=== PATIENT | female | born 1945 | race Caucasian/White ===

== ENCOUNTER 2020-06-22 08:39 | Outpatient (CLI) | payer MEDICARE, SELFPAY ==
[2020-06-22 09:30] LABS: Alanine Aminotransferase 14 U/L (4-35); Albumin Level 4.1 g/dL (3.5-5.1); Alkaline Phosphatase 126 U/L (38-126); Anion Gap 9 mmol/L (8-16); Aspartate Amino Transferase 29 U/L (14-36); Bilirubin,Total 0.4 mg/dL (0.2-1.3); Blood Urea Nitrogen 14 mg/dL (7-17); Calcium 9.4 mg/dL (8.4-10.2); Carbon Dioxide 25 mmol/L (22-30); Chloride 98 mmol/L (98-107); Estimated Glomerular Filt Rate 34; Glucose 95 mg/dL (65-105); Potassium 4.1 mmol/L (3.4-5.0); Sodium 132 mmol/L (137-145)
== END 2020-06-22 08:40 | disposition home or self-care (01) ==
PROVIDERS: PCP Registered Nurse
DX: C34.91 Malignant neoplasm of unspecified part of right bronchus or lung (principal)
CPT/HCPCS: 36415; 80053

== ENCOUNTER 2021-09-21 17:16 | Inpatient (IN) | payer MEDICARE, SELFPAY ==
[2021-09-21] VITALS (75 sets, daily range): BP systolic 57–128; BP diastolic 29–110; PULSE 47–97; RESP 13–31; TEMP 36.3–36.8; O2SAT 73–100
--- NOTE | ~2021-09-21 | CT_ITS ---
EXAMINATION: CT cervical spine wo con DATE: 09/21/2021 18:32 INDICATION: Neck pain after fall TECHNIQUE: Computed tomography (CT) of the cervical spine was performed without intravenous contrast. The dose-length product was 191 mGy-cm. Automated exposure control and iterative reconstruction tech nique were employed. COMPARISON: None FINDINGS: There is degenerative disc disease at C4-5 and C5-6. There is straightening of cervical davonte dosis. There is moderate multilevel uncinate degenerative change at C3-4 through C6-7. There is mild levocurvature of the cervical spine. Odontoid process is unremarkable. There is carotid atheroscleros is. There is a small bone island in the odontoid process. No significant paraspinal soft tissue abnor mality. IMPRESSION: 1. No acute abnormality of the cervical spine. 2: Moderate cervical spondylosis. Reviewed, dictated and finalized at location A. ET WASHER
--- NOTE | ~2021-09-21 | CT_ITS ---
EXAMINATION: CT chest abdomen pelvis wo con DATE: 09/21/2021 21:27 BOAT JOINER HELPER INDICATION: Lung cancer. Shock. Diarrhea. TECHNIQUE: Computed tomography (CT) of the chest, abdomen, and pelvis was performed without intraveno us contrast. The dose-length product was 889.78 mGy-cm. Automated exposure control and iterative zaria nstruction technique were employed. COMPARISON: Chest x-ray dated 09/21/2021 FINDINGS: CHEST CT: There is mediastinal lymphadenopathy. Heart size normal. There is a hiatal hernia with fluid in the m id and distal esophagus, consistent with reflux. No significant pleural or pericardial effusion. Ther e is atherosclerosis of the aorta and coronary arteries. There is an irregular pleural-based mass in the right upper lobe measuring up to 1.9 cm with adjacent pleural thickening, suspicious for known br onchogenic carcinoma. There is a cavitary mass in the right upper lobe anteriorly measuring 2.6 x 2.1 cm. There is patchy groundglass opacification of the lingula, left lower lobe, right lower lobe and to a lesser degree the right upper lobe, consistent with pneumonia. No pneumothorax. No endobronchial lesions. ABDOMEN/PELVIS CT: Gallbladder is distended with gallstones. The spleen, liver, pancreas, adrenal glands and kidneys are unremarkable. There is atherosclerosis of the abdominal aorta without aneurysm. There is a Su cat heter in the bladder which is decompressed. There are nonobstructing left renal stones. No free air o r free fluid. Nonobstructive bowel gas pattern. Colonic diverticulosis without evidence for diverticu litis. There is a tubular structure in the left adnexa with fluid, possibly hydrosalpinx. This abuts the sigmoid colon. No significant surrounding inflammatory changes are identified to suggest infectio us/inflammatory process. There is moderate thoracic and lumbar spondylosis. No focal lytic or blastic lesions. IMPRESSION: 1. Right upper lobe nodule measuring 1.9 cm with adjacent pleural thickening, concerning for bronchog enic carcinoma. Additional cavitary mass right upper lobe measures up to 2.6 cm which may be malignan t or infectious/inflammatory. 2: Patchy groundglass opacities bilaterally, consistent with pneumonia. 3: Mediastinal lymphadenopathy which may be metastatic disease or reactive lymphadenopathy. 4: Distended gallbladder with cholelithiasis. 5: Nonobstructing left nephrolithiasis. 6: Tubular left adnexal structure with fluid, possibly hydrosalpinx. Infectious etiology less favored given the lack of associated inflammation. Reviewed, dictated and finalized at location A. JOINER HELPER IMPRESSION: 1. Right upper lobe nodule measuring 1.9 cm with adjacent pleural thickening, c oncerning for bronchogenic carcinoma. Additional cavitary mass right upper lobe measures up to 2.6 cm which may be malignant or infectious/inflammatory. 2: Patchy groundglass opacities bilaterally, consistent with pneumonia. 3: Mediastinal lymphadenopathy which may be metastatic disease or reactive lymp hadenopathy. 4: Distended gallbladder with cholelithiasis. 5: Nonobstructing left nephrolithiasis. 6: Tubular left adnexal structure with fluid, possibly hydrosalpinx. Infectious etiology less favored given the lack of associated inflammation.
--- NOTE | ~2021-09-21 | XR_ITS ---
XR chest 1V portable 09/21/2021 17:37 Indication: Chest pain. STEMI. Procedure: AP portable chest Comparison: 08/20/2017 Findings: Developing right upper and left basilar airspace disease, compatible with pneumonia. Heart size upper normal. There is atherosclerosis. No significant effusion. There is left apical pleural th ickening/scarring. Impression: 1: Developing bilateral airspace disease, compatible with pneumonia. Reviewed, dictated and finalized at location A. INIST APPRENTICE Impression: 1: Developing bilateral airspace disease, compatible with pneumonia.
--- NOTE | ~2021-09-21 | CT_ITS ---
EXAMINATION: CT brain wo con DATE: 09/21/2021 18:31 INDICATION: Status post fall. TECHNIQUE: Computed tomography (CT) of the head was performed without intravenous contrast. The dose- length product was 605.33 mGy-cm. Automated exposure control and iterative reconstruction technique w ere employed. COMPARISON: No prior studies for comparison. FINDINGS: Mild generalized atrophy. There are scattered mild periventricular and subcortical white ma tter changes, most likely related to small vessel ischemic disease (microangiopathy). Basilar cistern s are patent. There is mild mucosal thickening of the right ethmoid and sphenoid sinuses. Mastoids ar e pneumatized. No depressed skull fractures. No acute intracranial hemorrhage, infarction, mass or ma ss effect. IMPRESSION: 1. No acute intracranial abnormality. 2: Chronic age-related findings. Reviewed, dictated and finalized at location A. ENT LOAN COUNSELOR
--- NOTE | 2021-09-21 17:23 | ECG_ITS ---
Measurements Intervals [place] Rate: 80 P: [place]: 0 QRS: 31 QRSD: 91 T: 84 QT: 426 QTc: 491 Interpretive Statements ATRIAL FIBRILLATIONjavascript:perform('study_confirm'); ST ELEVATION, CONSISTENT WITH INFERIOR INJURY [MARKED ST ELEVATION W/O NORMALLY INFLECTED T-WAVE IN II/aVF] WITH RECIPROCAL CHANGES NOTED ACUTE MD ABNORMAL EKG NO PREVIOUS ECG AVAILABLE FOR COMPARISON Electronically Signed On 09-22-2021 10:28:37 VOCATIONAL TRAINER by Wilber Casper M.D.
--- NOTE | 2021-09-21 17:23 | PC.NURSE ---
CARDIOLOGY AT BEDSIDE TO SPEAK WITH NURSE.
[2021-09-21 17:33] LABS: Hematocrit 30.6 % (37.0-47.0); Hemoglobin 10.2 g/dL (12.0-15.0); Mean Corpuscular HGB Conc 33.3 g/dl (32-36); Mean Corpuscular Hemoglobin 31.6 pg (26-34); Mean Corpuscular Volume 94.7 fl (80-100); Mean Platelet Volume 9.8 fl (7.4-10.4); Platelet Count Result 489 k/mm3 (150-375); Red Blood Count 3.23 M/mm3 (4.2-5.4); Red Cell Distribution Width 13.6 % (11.5-14.5); White Blood Count 33.8 K/mm3 (4.5-10.0)
[2021-09-21] MEDS: SODIUM CHLORIDE 0.9% IV 1,000 ML 999 ML IV CONT ×3 (17:38→19:50)
--- NOTE | 2021-09-21 17:41 | ECG_ITS ---
Measurements Intervals [place] Rate: 80 P: CT: 0 QRS: 148 QRSD: 90 T: 152 QT: 388 QTc: 449 Interpretive Statements ATRIAL FIBRILLATION ACUTE INFERIOR INJURY PATTERN WITH RECIPROCAL CHANGES NOTED ABNORMAL EKG Electronically Signed On 09-22-2021 10:29:31 COMMODITY TRADER by Wilber Casper M.D.
[2021-09-21 17:43] LABS: INR 1.2; Prothrombin Time 14.3 Seconds (11.1-14.7)
[2021-09-21 17:44] LABS: Partial Thromboplastin Time 33.2 SECONDS (22.3-36.8)
[2021-09-21 17:49] LABS: Albumin Level 4.1 g/dL (3.5-5.1); Alkaline Phosphatase 128 U/L (38-126); Anion Gap 16 mmol/L (8-16); Aspartate Amino Transferase 37 U/L (14-36); Bilirubin,Total 0.6 mg/dL (0.2-1.3); Blood Urea Nitrogen 23 mg/dL (7-17); Carbon Dioxide 13 mmol/L (22-30); Chloride 110 mmol/L (98-107); Cholesterol 213 mg/dL (0-200); Estimated CRCL calculation 19 ml/min; Estimated Glomerular Filt Rate 24; Glucose 175 mg/dL (65-110); HDL Direct 39 mg/dL; Potassium 3.4 mmol/L (3.4-5.0); Sodium 139 mmol/L (137-145); Triglycerides 184 mg/dL (<150)
[2021-09-21 17:54] LABS: Band Neutrophils Percent 13 % (0-6); Lymphocytes Absolute Manual 0.33 K/mm3 (1.1-4.5); Monocytes Absolute Manual 1.69 K/mm3 (0.1-0.90); Monocytes Percent Manual 5 % (3-9); Neutrophils Absolute Manual 31.77 K/mm3 (1.7-7.2); Neutrophils Percent Manual 81 % (46-73); Platelet Estimate Increased (Adequate); Total Cells Counted 100
[2021-09-21 17:55] LABS: LDL Cholesterol Direct 114 mg/dL
[2021-09-21 18:01] LABS: Alanine Aminotransferase 19 U/L (4-35); Troponin I 0.654 ng/mL (0.000-0.034)
[2021-09-21 18:11] LABS: Creatine Kinase 580 U/L (30-135)
--- NOTE | 2021-09-21 18:13 | ED.GENADULT ---
HPI - General Adult General Chief complaint: Chest Pain Stated complaint: stemi Time Seen by Provider: 09/21/21 17:24 Source: patient, family and EMS Mode of arrival: EMS Limitations: no limitations History of Present Illness HPI narrative: Patient is 76 years old white female brought to the emergency room by ambulance because she was found by her daughter on the floor at 3 PM today, last time was seen by her daughter 2 hours prior to that.. Patient been having watery diarrhea for 2 weeks, got up, got dizzy and fell on the floor 2 AM, found by her daughter on the floor at 10 AM today. The daughter was able to clean her up and help her to go to bed. 3 hours later patient lost her balance and fell on the floor again, her daughter found her at 3 PM today laying down on the floor, responsive, awake. Patient had quite a bit of vomiting, in the ambulance prior to arrival. EMT called for STEMI, poor quality EKG, patient is shaking all over, repeated EKG in the emergency room showed ST elevation in inferior leads with reciprocal changes, Dr. Conn was at the bedside at that time. Patient denies any fever, abdominal pain, chest pain, shortness of breath, or back pain. History of lung cancer, stage IV with metastasis to both lungs and lymph nodes, history of coronary stent years ago, patient is DNR. Patient currently on aspirin, her daughter is telling me that patient probably does not take her medication. Patient lives alone. Currently patient is awake, alert and oriented x4 with severe dry mouth. The STEMI call was canceled by Dr. Wylie because, patient denied any chest pain or shortness of breath, stage IV lung cancer with metastasis, and she is DNR. The EKG changes could be old and that the patient is not a candidate for cardiac catheterization at this time. Past medical history: Coronary artery disease, hepatitis B as a child, squamous cell carcinoma of the skin, osteoporosis, depression, cardiac stent placement x5 in 2009, ARUNA to RCA in 2014, she is currently day smoker, smoked for 50 years, 1 and half packs per day Related Data Home Medications Medication Instructions Recorded Confirmed sertraline mg 09/21/21 Allergies Allergy/AdvReac Type Severity Reaction Status Date / Time No Known Allergies Allergy Verified 09/21/21 17:23 Review of Systems Review of Systems: CONSTITUTIONAL: Denies fever, reports chills EYES: Denies visual changes, redness, or discharge. ENT: Denies rhinorrhea, congestion, sore throat, or otalgia. CARDIOVASCULAR: Denies chest pain, palpitations, or edema. RESPIRATORY: Denies cough or dyspnea. GASTROINTESTINAL: No abdominal pain, reports nausea, vomiting and diarrhea GENITOURINARY: Denies dysuria or hematuria. SKIN: Denies rash or itching. MUSCULOSKELETAL: Denies back pain, joint pain, or myalgia. NEUROLOGIC: Denies headache, numbness, or weakness. PSYCHIATRIC: No anxiety, restlessness Exam Narrative: General appearance: Well-developed, well-nourished, shaking Skin: Normal color Head: Normocephalic, nontraumatic Eyes: Clear conjunctiva ENT: Dry mouth Neck: Supple, nontender Chest and respiratory: Airway patent, no respiratory distress, no accessory muscle use Heart: Regular rate/rhythm Abdomen: Soft, nontender, no organomegaly, quiet bowel sounds Vascular: Normal peripheral pulses, normal capillary refill. Musculoskeletal: Normal range of motion, nontender back Neurologic: Alert and oriented ?3, NAPPING MACHINE OPERATOR is normal as tested, no gross motor deficit Course Consultations Consultation #1: Dr. Conn Patient is not a candidate for cardiac catheterization at this time Date: 09/21/21 Time: 18:27 Consultation #2: [facility]
--- NOTE | 2021-09-21 18:30 | PM.IMHP ---
H&P: HPI History of Present Illness Date/Time: 09/21/21 18:30 Chief Complaint: Fall x2, weakness, diarrhea. 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 She endorses multiple episodes of watery diarrhea daily for upwards of 2 weeks and she has gotten progressively weak and dehydrated since that time. Over the past couple of days she reports having multiple instances where she feels lightheaded or dizzy upon standing and she believes that is what caused her to have 2 falls today. Apparently she had a fall at about 02:00 when getting up to use the bathroom and she lay on the floor until she was found by her daughter at 10:00, too weak to get herself up. Daughter helped her back to bed inpatient did not wish for any evaluation at that time. She had another fall approximately 15:00 under similar circumstances at which time daughter found her soiled with diarrhea and emesis. EMS was summoned on their arrival she was found to have ST-elevation in inferior leads though there was quite a bit of artifact on EKG. The patient was not having any chest pain however she never had chest pain with her previous MIs, and a STEMI was called in the field. She was evaluated by Dr. Conn, hospitality aide, at bedside. At this time he does not feel that she is an appropriate candidate for the ballistics laboratory gunsmith for multiple reasons to include her metastatic cancer, frailty, and concomitant sepsis/septic shock picture. The patient also wishes to be a do not resuscitate and does not wish for any heroic measures. I had multiple discussions with the patient and her daughter at bedside, with the patient's permission, regarding the gravity of her current situation. The patient was initially started on peripheral dopamine given bradycardia and hypotension (64/30) and though she did have some improvement in her blood pressures it was evident that she would need another if not multiple other vasopressors to keep her mean arterial pressures within acceptable range. After further discussions it was decided to discontinue the dopamine and to admit the patient for comfort measures. At the time my evaluation the patient is alert and has some periods of confusion. She occasionally seems disoriented. She has had frequent episodes of dry heaves and a couple of episodes of emesis. She is not complaining of any pain at this time. Review of Systems Review of Systems: Twelve systems were reviewed. She believes that she may have lost consciousness with her falls today, briefly. Patient reports chills, shakes, and fever of reportedly 102.5? yesterday. She denies headache and neck ache. She has not had sinus congestion, rhinorrhea, otalgia, or odynophagia. She denies significant cough and shortness of breath. She has not had chest pain, pleuritic pain, orthopnea, PND, or lower extremity edema. Her appetite has been poor for a couple of days. She has had diarrhea as detailed above. No recent antibiotic use or history of C diff. she denies dysuria. No abdominal pain. Except as documented, all other systems were reviewed and are negative. [facility] Past Medical History Medical History (Updated 09/21/21 @ 23:57 by Cynthia Ibrahim PA-C) Anemia History of blood transfusion. Chronic kidney disease Coronary artery disease Dehydration Depression Hypertension Osteoporosis Squamous cell carcinoma of lung Metastatic to both lungs and mediastinal and hilar lymph nodes. Treated with Keytruda through 06/2019, now watchful waiting. Followed by Dr. Gifford. Tobacco dependence Surgical History Surgical History (U
[2021-09-21 18:43] LABS: Base Excess ABG -10.2 mEq/l (+/-2.0); Carboxyhemoglobin 0.3 % THb (0-2.0); Fractional Inspired Oxygen 28 %; HCO3 ABG 13.5 mEq/l (22.0-26.0); Methemoglobin ABG 0.1 %THb (0-1.5); Oxygen Content ABG 13.6 %vol (16.0-22.0); Oxygen Saturation ABG 96.8 % (95.0-100.0); Oxyhemoglobin 94.7 % THb (90.0-100.0); PO2 ABG 88.6 mmHg (80.0-100.0); PO2 FiO2 Ratio Arterial Blood 3.16 %; Reduced Hemoglobin 4.9 %THb (0-5.0); Total Hemoglobin 10.1 g/dL (12.0-18.0); pH ABG 7.373 (7.350-7.450)
[2021-09-21 18:46] LABS: Device NASAL CANNULA; Modified Allen's Test Pass; PCO2 ABG 23.8 mmHg (35.0-45.0); Site Drawn RIGHT RADIAL
[2021-09-21 19:14] LABS: Lactic Acid Reflex 3.8 mmol/L (0.7-2.1)
[2021-09-21 19:17] LABS: CRP 5.3 mg/dL (<1.0)
[2021-09-21] MEDS: ONDANSETRON INJ 4 MG/2 ML VIAL IV PUSH (19:18)
[2021-09-21 20:08] LABS: Procalcitonin 29.7 ng/mL
[2021-09-21] MEDS: DOPamine 400 MG/D5W 250 ML 400 MG/250 ML BAG 12.19 MG IV CONT (20:08)
[2021-09-21 20:15] LABS: Add Urine Microscopic? YES; Appearance Urine Cloudy (Clear); Bacteria Urine Trace /hpf; Bilirubin Urine Negative (Negative); Blood Urine 1+ (Negative); Color Urine Yellow (Yellow); Glucose Urine UA Negative (Negative); Ketones Urine Negative (Negative); Leukocyte Esterase Ur Trace LEU/UL (Negative); Mucus Urine Rare /lpf; Nitrate Urine Positive (Negative); Protein Urine 1+ mg/dL (Negative); RBC Urine 0-2 /hpf (0-2); Specific Grav Ur 1.011 (1.001-1.035); Squamous Epithelial Cell Urine Rare /hpf (Few); Urobilinogen Urine Negative mg/dL (<2.0)
[2021-09-21 20:19] LABS: SARS-CoV-2 RNA PCR Negative
--- NOTE | 2021-09-21 20:27 | PC.NURSE ---
report rcvd @1912. pt found to be hypotensive for some time, 2 liters NS finishing their infusion. requested from ED provider dr callahan @1920 about pressure support for bp. no orders given. 19:30. large BM by pt, pt cleaned up and new sheets and oliver placed. 1939 dr lal stated he has notified hospitalist, awaiting arrival from Radha GRANADOS. no med orders given. 1949 radha GRANADOS at bedside to speak to pt and family about expectations and care. orders given for NS bolus #3. 20:05 order given for dopamine by radha GRANADOS. 20:30 awaiting bed assignment
[2021-09-21] MEDS: PROMETHAZINE HCL 25 MG/ML AMPUL 12.5 MG IV PUSH (20:57)
[2021-09-21 21:56] LABS: Anion Gap 11 mmol/L (8-16); Blood Urea Nitrogen 23 mg/dL (7-17); Calcium 7.8 mg/dL (8.4-10.2); Carbon Dioxide 12 mmol/L (22-30); Chloride 113 mmol/L (98-107); Estimated CRCL calculation 21 ml/min; Estimated Glomerular Filt Rate 28; Glucose 201 mg/dL (65-110); Magnesium 1.3 mg/dL (1.6-2.3); Potassium 3.3 mmol/L (3.4-5.0); Sodium 136 mmol/L (137-145)
[2021-09-21 21:59] LABS: Lactic Acid Reflex 4.6 mmol/L (0.7-2.1)
[2021-09-21 22:02] LABS: Reflex Lactic Acid Yes or No Add Lactic
[2021-09-21 22:03] LABS: Creatine Kinase 788 U/L (30-135)
[2021-09-21] MEDS: LORazepam INJ (*CRX) 2 MG/ML VIAL 1 MG IV PUSH (23:00)
--- NOTE | 2021-09-21 23:05 | PC.NURSE ---
approx 22:10. spoke with daughter who is very concern about mother's condition. daughter didnt fully understand the meaning of comfort care. daughter wants to know the newest CT result then speak to radha GRANADOS once more. informed Varsha the ER charge. radha GRANADOS notified, reviewed CT report, and spoke with the pt's daughter over the phone. pt to be made hospice and room change.
[2021-09-21] MEDS: metroNIDAZOLE 500 MG/ISO 100ML 500 MG/100 ML BAG 100 MG IVPB (23:46)
--- NOTE | 2021-09-22 00:47 | ADMGEN ---
2300 This patient, Daja De La Vega, was admitted to [facility] Surg Room 326-01. Patient/family oriented to hospital policies and general routines including ID bracelet, bed and alarms, visiting hours, pain management, procedures, bathroom and other care routines, personal items, smoking policy, room service/diet, and visiting hours. Information on how to activate the Rapid Response Team has been discussed. Patient/Family are encouraged to report perceived risks to care and to ask questions if they do not understand what they are told or what they should do.
[2021-09-22 05:59] VITALS: BP 69/45; PULSE 55; RESP 16; TEMP 37; O2SAT 93
[2021-09-22 08:00] VITALS: O2SAT 93
--- NOTE | 2021-09-22 09:35 | PM.IMPN ---
Progress Note: A&P Assessment and Plan (1) Acute inferior myocardial infarction: Code(s): I21.19 - ST elevation (STEMI) myocardial infarction involving other coronary artery of inferior wall Status: Acute Assessment and Plan: -EKG shows ST elevation in the inferior leads though she has not really had any chest pain. -Troponin had gotten as high as 5.610. -She was evaluated by Dr. Conn, life care planner, at bedside. At this time he does not feel that she is an appropriate candidate for the labour market economist for multiple reasons to include her metastatic cancer, frailty, and concomitant sepsis/septic shock picture. -The patient also wishes to be a do not resuscitate and does not wish for any heroic measures. (2) Shock: Code(s): R57.9 - Shock, unspecified Status: Acute Assessment and Plan: -Likely a combination of septic and cardiogenic shock. -She was adequately hydrated without any significant change in blood pressures. -Initially started on dopamine drip however she is now being made comfort measures. -BP has continued to be low, 69/45 this morning (3) Dehydration: Code(s): E86.0 - Dehydration Status: Acute Assessment and Plan: -Patient was adequately hydrated in the ER. (4) Acute kidney injury superimposed on chronic kidney disease: Code(s): N17.9 - Acute kidney failure, unspecified; N18.9 - Chronic kidney disease, unspecified Status: Acute Assessment and Plan: -Likely due to a combination of factors including hypovolemia from dehydration, hypoperfusion from hypotension/cardiogenic shock, and sepsis. (5) Pneumonia: Code(s): J18.9 - Pneumonia, unspecified organism Status: Acute Assessment and Plan: -Likely bacterial with a significantly elevated procalcitonin. -Negative for SARS-CoV-2 by PCR. -comfort measures only, no abx (6) Diarrhea: Code(s): R19.7 - Diarrhea, unspecified Status: Acute Assessment and Plan: -CT of the abdomen did not demonstrate any abnormal findings. (7) Abnormal urinalysis: Code(s): R82.90 - Unspecified abnormal findings in urine Status: Acute Assessment and Plan: -Patient denies symptoms of UTI though urine was positive for nitrates, leukocyte esterase, and trace bacteria. -comfort measures only, no abx (8) Electrolyte abnormality: Code(s): E87.8 - Other disorders of electrolyte and fluid balance, not elsewhere classified Status: Acute Assessment and Plan: -Including hypokalemia, hypomagnesemia, and hypocalcemia. (9) Rhabdomyolysis: Code(s): M62.82 - Rhabdomyolysis Status: Acute Assessment and Plan: -Secondary to fall x2 and being down on the floor. (10) Squamous cell carcinoma of lung: Code(s): C34.90 - Malignant neoplasm of unspecified part of unspecified bronchus or lung Status: Acute Assessment and Plan: -CT of the chest, abdomen, and pelvis showed known right upper lobe malignancy with probable metastatic disease to the lymph nodes. -She had not received any treatment for over 1 year. (11) Coronary artery disease: Code(s): I25.10 - Atherosclerotic heart disease of [place] coronary artery without angina pectoris Status: Acute Assessment and Plan: -History of stent to right coronary artery with [place] today in a similar distribution. (12) Tobacco dependence: Code(s): F17.200 - Nicotine dependence, unspecified, uncomplicated Status: Acute Assessment and Plan: -Declines the need for nicotine patch. Additional Plan 09/21/21 per Cynthia Ibrahim CORPORATE COMMUNICATIONS SPECIALIST: After multiple reassessments and other evaluations, the patient was adamant that she did not want any heroic measures and she reiterated her DNR status. After discussions with her daughter, it was decided to make
[2021-09-22] MEDS: LORazepam INJ (*CRX) 2 MG/ML VIAL 1 MG IV PUSH ×2 (10:15→12:06)
[2021-09-22] MEDS: MORPHINE SULFATE (*CRX) 2 MG/ML INJ 1 MG IV PUSH ×2 (10:15→12:06)
--- NOTE | 2021-09-22 11:26 | PCDIET ---
Patient screened in for MST 3. Per EMR, pt has unintentionally lost 14-23lbs and has a decreased appetite. No past weight history reported in EMR. Pt is comfort measure only. No further nutritional needs. No further nutritional interventions.
[2021-09-22] MEDS: MORPHINE SULFATE (*CRX) 2 MG/ML INJ IV PUSH ×2 (13:19→14:56)
[2021-09-22 13:40] VITALS: BP 83/38; PULSE 50; RESP 20; TEMP 36.1; O2SAT 90
[2021-09-22] MEDS: LORazepam INJ (*CRX) 2 MG/ML VIAL IV PUSH (14:56)
--- NOTE | 2021-09-23 06:45 | PM.DS ---
DS: Admitting Diagnosis Discharge Date 09/22/21 Admitting Diagnosis STEMI DS: Discharge Diagnosis Discharge Diagnosis (1) Acute inferior myocardial infarction: Code(s): I21.19 - ST elevation (STEMI) myocardial infarction involving other coronary artery of inferior wall Status: Acute Assessment and Plan: -EKG shows ST elevation in the inferior leads though she has not really had any chest pain. -Troponin had gotten as high as 5.610. -She was evaluated by Dr. Conn, ice hockey coach, at bedside. At this time he does not feel that she is an appropriate candidate for the center medical and lab director for multiple reasons to include her metastatic cancer, frailty, and concomitant sepsis/septic shock picture. -The patient also wishes to be a do not resuscitate and does not wish for any heroic measures. (2) Shock: Code(s): R57.9 - Shock, unspecified Status: Acute Assessment and Plan: -Likely a combination of septic and cardiogenic shock. -She was adequately hydrated without any significant change in blood pressures. -Initially started on dopamine drip however she is now being made comfort measures. -BP has continued to be low, 69/45 this morning (3) Dehydration: Code(s): E86.0 - Dehydration Status: Acute Assessment and Plan: -Patient was adequately hydrated in the ER. (4) Acute kidney injury superimposed on chronic kidney disease: Code(s): N17.9 - Acute kidney failure, unspecified; N18.9 - Chronic kidney disease, unspecified Status: Acute Assessment and Plan: -Likely due to a combination of factors including hypovolemia from dehydration, hypoperfusion from hypotension/cardiogenic shock, and sepsis. (5) Pneumonia: Code(s): J18.9 - Pneumonia, unspecified organism Status: Acute Assessment and Plan: -Likely bacterial with a significantly elevated procalcitonin. -Negative for SARS-CoV-2 by PCR. -comfort measures only, no abx (6) Diarrhea: Code(s): R19.7 - Diarrhea, unspecified Status: Acute Assessment and Plan: -CT of the abdomen did not demonstrate any abnormal findings. (7) Abnormal urinalysis: Code(s): R82.90 - Unspecified abnormal findings in urine Status: Acute Assessment and Plan: -Patient denies symptoms of UTI though urine was positive for nitrates, leukocyte esterase, and trace bacteria. -comfort measures only, no abx (8) Electrolyte abnormality: Code(s): E87.8 - Other disorders of electrolyte and fluid balance, not elsewhere classified Status: Acute Assessment and Plan: -Including hypokalemia, hypomagnesemia, and hypocalcemia. (9) Rhabdomyolysis: Code(s): M62.82 - Rhabdomyolysis Status: Acute Assessment and Plan: -Secondary to fall x2 and being down on the floor. (10) Squamous cell carcinoma of lung: Code(s): C34.90 - Malignant neoplasm of unspecified part of unspecified bronchus or lung Status: Acute Assessment and Plan: -CT of the chest, abdomen, and pelvis showed known right upper lobe malignancy with probable metastatic disease to the lymph nodes. -She had not received any treatment for over 1 year. (11) Coronary artery disease: Code(s): I25.10 - Atherosclerotic heart disease of [place] coronary artery without angina pectoris Status: Acute Assessment and Plan: -History of stent to right coronary artery with [place] today in a similar distribution. (12) Tobacco dependence: Code(s): F17.200 - Nicotine dependence, unspecified, uncomplicated Status: Acute Assessment and Plan: -Declines the need for nicotine patch. (13) Comfort measures only status: Code(s): Z51.5 - Encounter for palliative care Status: Acute Assessment and Plan: -09/21/21 per Cynthia Ibrahim ANIMAL CARETAKER SUPERVISOR: Yoshi
== END 2021-09-22 15:22 | disposition hospice, inpatient (51) | DRG 280 ==
LOC: ANHED 18:48 → ANHICU 21:08 → ANH3MEDSUR 22:26
PROVIDERS: Physician Assistant; Admitting Provider Internal Medicine; Emergency Provider Emergency Medicine; PCP Physician Assistant; Visit Provider Internal Medicine
DX: I21.19 ST elevation (STEMI) myocardial infarction involving other coronary artery of inferior wall (principal); J18.9 Pneumonia, unspecified organism; M62.82 Rhabdomyolysis; C34.91 Malignant neoplasm of unspecified part of right bronchus or lung; C78.02 Secondary malignant neoplasm of left lung; C77.1 Secondary and unspecified malignant neoplasm of intrathoracic lymph nodes; R57.9 Shock, unspecified; N17.9 Acute kidney failure, unspecified; I13.0 Hypertensive heart and chronic kidney disease with heart failure and stage 1 through stage 4 chronic kidney disease, or unspecified chronic kidney disease; I50.30 Unspecified diastolic (congestive) heart failure; W19.XXXA Unspecified fall, initial encounter; Z20.822 Contact with and (suspected) exposure to COVID-19; I25.10 Atherosclerotic heart disease of native coronary artery without angina pectoris; N18.9 Chronic kidney disease, unspecified; E86.0 Dehydration; E87.6 Hypokalemia; E83.42 Hypomagnesemia; E83.51 Hypocalcemia; R19.7 Diarrhea, unspecified; F17.210 Nicotine dependence, cigarettes, uncomplicated; Z51.5 Encounter for palliative care; Z66 Do not resuscitate; Z79.82 Long term (current) use of aspirin; Z79.899 Other long term (current) drug therapy; Z95.5 Presence of coronary angioplasty implant and graft
CPT/HCPCS: 36415; 36600; 70450; 71045; 71250; 72125; 74176; 80048; 80053; 80061; 81001; 82375; 82550; 82805; 83050; 83605; 83735; 84145; 84484; 85025; 85610; 85730; 86140; 86850; 86900; 86901; 87040; 87077; 87086; 87186; 93005; 96361; 96365; 96368; 96375; 99291; C9803; J0692; J1265; J1956; J2060; J2270; J2405; J2543; J2550; J3370; J7030; U0003; U0005

== ENCOUNTER 2021-09-22 15:23 | HOS | payer OTHER, MEDICARE, SELFPAY ==
[2021-09-22 15:41] VITALS: O2SAT 92
[2021-09-22] MEDS: MORPHINE SULFATE (*CRX) 2 MG/ML INJ IV PUSH ×4 (16:16→18:13)
[2021-09-22] MEDS: LORazepam INJ (*CRX) 2 MG/ML VIAL IV PUSH ×2 (16:16→18:13)
[2021-09-22 20:00] VITALS: O2SAT 93; O2SAT 95
--- NOTE | 2021-09-23 06:58 | PM.IMHP ---
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 Pt was placed on comfort measures on 09/21/21 and per family request she was transitioned to hospice care yesterday. Review of Systems Review of Systems: ROS unobtainable: Yes unobtainable due to medical condition PMFSH Past Medical History Medical History Anemia History of blood transfusion. Chronic kidney disease Coronary artery disease Dehydration Depression Hypertension Osteoporosis Squamous cell carcinoma of lung Metastatic to both lungs and mediastinal and hilar lymph nodes. Treated with Keytruda through 06/2019, now watchful waiting. Followed by Dr. Gifford. Tobacco dependence Surgical History Surgical History History of cardiac catheterization History of coronary artery stent placement Right coronary artery x2. Family History Family History Other Heart disease Hypertension Social History Social History Social History: The patient lives in her own home in [place]. She is and has 1 daughter. She smokes about 1.5 packs of cigarettes a day and has for 50+ years. No alcohol or illicit substance abuse. Her daughter, Nichole Camacho, is her healthcare power of deputy commonwealth's attorney. Code status: Do not resuscitate. Spiritual care concerns: No Meds Home Medications and Allergies Home Medications Medication Instructions Recorded Confirmed Type sertraline 50 mg PO DAILY 09/21/21 09/22/21 History alprazolam 0.25 mg PO PRN 09/22/21 09/22/21 History aspirin [Vaz[place]] 81 mg PO DAILY 09/22/21 09/22/21 History benzonatate 100 mg PO TID 09/22/21 09/22/21 History Allergies Allergy/AdvReac Type Severity Reaction Status Date / Time No Known Allergies Allergy Verified 09/21/21 17:23 Vital Signs Vital Signs - 24 hr 09/22/21 15:41 09/22/21 20:00 Pulse Oximetry 92 93 Exam Narrative: General: Acutely ill-appearing elderly female sleeping on exam. HEENT: Normocephalic, atraumatic. Dry mucous membranes. Neck: Supple. Respiratory: Coarse rhonchi noted throughout all lung sesay anteriorly. Slightly labored breathing but patient is asleep. Cardiovascular: Regular rate and rhythm with S1-S2. Gastrointestinal: Abdomen is soft, nontender, and nondistended with positive bowel sounds. Skin: Cool and dry. Toenails are long, thick, and yellow. Generalized pallor. Extremities: No cyanosis, clubbing, or edema. Radial and pedal pulses diminished but palpable. Neurological: Pt sleeping on exam, unable to assess however she is noted to move all 4 extremities Psychiatric: Pt sleeping on exam, unable to assess Assessment and Plan Assessment and plan (1) Hospice care patient: Code(s): Z51.5 - Encounter for palliative care Status: Acute (2) ST elevation (STEMI) myocardial infarction: Qualifiers: Involved coronary artery: other inferior wall coronary artery Qualified Code(s): I21.19 - ST elevation (STEMI) myocardial infarction involving other coronary artery of inferior wall Code(s): I21.3 - ST elevation (STEMI) myocardial infarction of unspecified site Status: Acute (3) Squamous cell carcinoma of lung: Code(s): C34.90 - Malignant neoplasm of unspecified part of unspecified bronchus or lung Status: Acute (4) Shock: C
[2021-09-23 08:00] VITALS: O2SAT 93
--- NOTE | 2021-09-23 11:29 | P.DN_ITS ---
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 Pt was placed on comfort measures on 09/21/21 and per family request she was transitioned to hospice care yesterday 09/22/21. Patient was receiving morphine and ativan per hospice recommendations and patient passed peacefully at 10:10 am. Additional Data Confirmation of as documented by pronouncing clinician: Pupillary Reflex, Palpable Pulses, Response to Stimuli, Heart Tones and Breath Sounds Name of Provider Notified: ROBERTA Cullen Time Provider Notified: 10:18 Provider Requests Autopsy: No Family Requests Autopsy: No Director [employer]iance Notified: Yes Date [facility] Notified of : 09/23/21 Time [facility] Notified of : 10:29
== END 2021-09-23 10:10 | disposition expired | DRG 951 ==
PROVIDERS: Admitting Provider Internal Medicine; PCP Physician Assistant; Visit Provider Physician Assistant
DX: Z51.5 Encounter for palliative care (principal); I21.3 ST elevation (STEMI) myocardial infarction of unspecified site; A41.9 Sepsis, unspecified organism; R65.21 Severe sepsis with septic shock; J18.9 Pneumonia, unspecified organism; N39.0 Urinary tract infection, site not specified; N17.9 Acute kidney failure, unspecified; M62.82 Rhabdomyolysis; I50.30 Unspecified diastolic (congestive) heart failure; C34.91 Malignant neoplasm of unspecified part of right bronchus or lung; C78.02 Secondary malignant neoplasm of left lung; C77.1 Secondary and unspecified malignant neoplasm of intrathoracic lymph nodes; I13.0 Hypertensive heart and chronic kidney disease with heart failure and stage 1 through stage 4 chronic kidney disease, or unspecified chronic kidney disease; R57.0 Cardiogenic shock; N18.9 Chronic kidney disease, unspecified; I25.10 Atherosclerotic heart disease of native coronary artery without angina pectoris; E86.0 Dehydration; F17.210 Nicotine dependence, cigarettes, uncomplicated; E87.6 Hypokalemia; E83.42 Hypomagnesemia; E83.51 Hypocalcemia; D64.9 Anemia, unspecified; M81.0 Age-related osteoporosis without current pathological fracture; Z66 Do not resuscitate; I95.89 Other hypotension; E86.1 Hypovolemia; Z95.5 Presence of coronary angioplasty implant and graft
CPT/HCPCS: J2060; J2270